=== PATIENT | female | born 1980 | race Caucasian/White ===

== ENCOUNTER 2021-08-28 16:07 | Emergency (ER) | payer BC ==
[~2021-08-28] VITALS: Ht 162.6 cm; Wt 52.2 kg
[~2021-08-28 16:07] MED LIST: LEVO112T2 PO
[2021-08-28] MEDS ORDERED: IBUP-1969 PO (19:32)
[2021-08-28] MEDS ORDERED: HYDR-3921 PO (19:32)
[2021-08-28 20:00] VITALS: BP_SYST 118
== END 2021-08-28 20:00 | disposition home or self-care (01) ==
LOC: SED 16:07
DX: S72.002A Fracture of unspecified part of neck of left femur, initial encounter for closed fracture (principal); S80.02XA Contusion of left knee, initial encounter; Z79.899 Other long term (current) drug therapy; W18.39XA Other fall on same level, initial encounter; Y93.89 Activity, other specified; Y92.89 Other specified places as the place of occurrence of the external cause; Y99.8 Other external cause status
CPT/HCPCS: 73502; 73560-TC; 99284